=== PATIENT | female | born 1965 | race African-American/Black ===

== ENCOUNTER 2017-12-16 15:42 | Inpatient (IN) | payer MEDICAID ==
[~2017-12-16] VITALS: Ht 162.6 cm; Wt 88.5 kg
[2017-12-16] MEDS ORDERED: METHYLPREDNISOLONE SOD SUCC 125 MG/2 ML VIAL IV STA (15:59)
[2017-12-16] MEDS ORDERED: ALBUTEROL (0.083%) 2.5MG/3ML NEB HHN STA (15:59)
[2017-12-16] MEDS ORDERED: IPRATROPIUM BROMIDE (0.02%) 0.5MG/2.5ML NEB HHN STA (15:59)
[2017-12-16] MEDS ORDERED: MAGNESIUM 2 G PREMIX 50 ML IV STA (15:59)
[2017-12-16 16:33] LABS: BASOPHILS % 0.6 % (0.0-2.0); EOSINOPHILS % 0.8 % (0.0-5.0); HEMATOCRIT. 48.2 % (36.0-48.0); HEMOGLOBIN. 16.7 g/dL (12.0-16.0); LYMPHOCYTES % 12.1 % (20.0-50.0); MEAN CORPUSCULAR HEMOGLOBIN 34.1 pg (28.0-32.0); MEAN CORPUSCULAR VOLUME 98.7 fL (81.0-99.0); MEAN PLATELET VOLUME 9.4 fl (7.4-10.4); MONOCYTES % 10.3 % (2.0-8.0); NEUTROPHILS % 76.2 % (40.0-76.0); PLATELET 187 x1000/uL (130-400); RED BLOOD CELL COUNT 4.88 mill/uL (4.2-5.4); RED CELL DISTRIBUTION WIDTH 12.4 % (11.6-14.6)
[2017-12-16] MEDS ORDERED: SODIUM CHLORIDE 0.9% 1,000 ML IV ONE (16:35)
[2017-12-16 16:39] LABS: CHLORIDE 103 mEq/L (98-107)
[2017-12-16 16:40] LABS: INR 1.1
[2017-12-16] MEDS ORDERED: POTASSIUM CHLORIDE 20MEQ TABLET SR PO ONE (17:15)
[2017-12-17] VITALS (11 sets, daily range): BP systolic 102–157; BP diastolic 59–102
[2017-12-17] MEDS ORDERED: IPRATROPIUM/ALBUTEROL 0.5-3(2.5)MG/3ML NEB HHN PRN ×2 (05:30→12:15)
[2017-12-17] MEDS ORDERED: METHYLPREDNISOLONE SOD SUCC 125 MG/2 ML VIAL IV SCH (06:00)
[2017-12-17] MEDS: PANTOPRAZOLE 40MG DR TABLET PO SCH (06:11)
[2017-12-17] MEDS ORDERED: MAGNESIUM/ALUMINUM HYDROXIDE/SIMETHICONE 30ML UDC PO PRN (07:45)
[2017-12-17] MEDS ORDERED: DOCUSATE SODIUM 100MG CAPSULE PO PRN (07:45)
[2017-12-17] MEDS ORDERED: HYDROCODONE/ACETAMINOPHEN 10/325MG TABLET PO PRN (07:45)
[2017-12-17] MEDS ORDERED: DIPHENHYDRAMINE 50MG/ML VIAL IV PRN (07:45)
[2017-12-17] MEDS ORDERED: ONDANSETRON HCL 4MG/2ML VIAL IV PRN (07:45)
[2017-12-17] MEDS ORDERED: ACETAMINOPHEN 650MG SUPP PR PRN (07:45)
[2017-12-17] MEDS ORDERED: LORAZEPAM 0.5MG TABLET PO PRN (07:45)
[2017-12-17] MEDS ORDERED: GUAIFENESIN 200MG/10ML SUGAR FREE UDC PO PRN (07:45)
[2017-12-17] MEDS ORDERED: ACETAMINOPHEN 650MG/20.3ML UDC GT PRN (07:45)
[2017-12-17] MEDS ORDERED: CLONIDINE 0.1MG TABLET PO PRN (07:45)
[2017-12-17] MEDS ORDERED: NA PHOS,M-B/NA PHOS,DI-BA ENEMA 118ML PR PRN (07:45)
[2017-12-17] MEDS ORDERED: ACETAMINOPHEN 325MG TABLET PO PRN (07:45)
[2017-12-17] MEDS ORDERED: HYDROCODONE/ACETAMINOPHEN 5/325MG TABLET PO PRN (07:45)
[2017-12-17 08:24] LABS: BG BASE EXCESS -0.6 mmol/L (-2.0-2.0); BG BILEVEL POS AIRWAY PRESSURE 15/5; BG CARBOXYHEMOGLOBIN 0.5 % (0.5-1.5); BG DEOXYHEMOGLOBIN 1.7 % (0.0-5.0); BG HCO3 ACT 24.3 mmol/L (22.0-26.0); BG METHEMOGLOBIN 0.4 % (0.0-1.5); BG OXYGEN SATURATION 98.3 % (92.0-98.5); BG OXYHEMOGLOBIN 97.4 % (94.0-97.0); BG PCO2 40.9 mmHg (35.0-45.0); BG PH 7.391 (7.350-7.450); BG PO2 119.2 mmHg (75.0-100.0); BG SAMPLE SITE RIGHT RADIAL; BG TOTAL HEMOGLOBIN 16.3 g/dL (12.0-18.0); BG VENT MODE MASK - BIPAP; BG VENT RATE 16 set
[2017-12-17] MEDS: IPRATROPIUM BROMIDE (0.02%) 0.5MG/2.5ML NEB HHN SCH ×2 (09:03→11:47)
[2017-12-17] MEDS: ENOXAPARIN 40MG/0.4ML SYR SUBCUT SCH (09:32)
[2017-12-17] MEDS ORDERED: POTASSIUM CHLORIDE 20MEQ TABLET SR PO SCH (11:45)
[2017-12-17 12:02] LABS: CHLORIDE 109 mEq/L (98-107)
[2017-12-17 12:10] LABS: LDL CHOLESTEROL 57 mg/dL (5-100); TOTAL IRON BINDING CAPACITY 282 ug/dL (250-450)
[2017-12-17 12:12] LABS: HDL CHOLESTEROL 112 mg/dL (40-59)
[2017-12-17 12:13] LABS: T4 FREE 1.09 ng/dL (0.76-1.46)
[2017-12-17] MEDS ORDERED: GUAIFENESIN-DM 200MG-20MG/10ML UDC PO PRN (12:15)
[2017-12-17] MEDS: LORATADINE 10MG TABLET PO SCH (12:42)
[2017-12-17] MEDS: GABAPENTIN 100MG CAPSULE PO SCH ×2 (12:43→22:04)
[2017-12-17] MEDS ORDERED: DEXTROSE 50% WATER 50ML SYRINGE IV PRN (13:00)
[2017-12-17] MEDS: BLOOD SUGAR DIAGNOSTIC STRIP TEST SCH ×3 (13:00→21:01)
[2017-12-17] MEDS: INSULIN LISPRO 100 UNITS/ML SUBCUT SCH ×3 (13:00→21:00)
[2017-12-17 13:26] LABS: HEMATOCRIT. 43.1 % (36.0-48.0); HEMOGLOBIN. 14.6 g/dL (12.0-16.0); MEAN CORPUSCULAR HEMOGLOBIN 33.7 pg (28.0-32.0); MEAN CORPUSCULAR VOLUME 99.2 fL (81.0-99.0); MEAN PLATELET VOLUME 9.6 fl (7.4-10.4); PLATELET 207 x1000/uL (130-400); RED BLOOD CELL COUNT 4.34 mill/uL (4.2-5.4); RED CELL DISTRIBUTION WIDTH 12.5 % (11.6-14.6)
[2017-12-17 13:30] LABS: CHLORIDE 107 mEq/L (98-107)
[2017-12-17 13:38] LABS: AMMONIA 47 uMol/L (<32)
[2017-12-17] MEDS ORDERED: LIDOCAINE HCL/PF 1% 2ML VIAL ONE (13:38)
[2017-12-17 13:40] LABS: CREATINE KINASE 327 IU/L (26-192)
[2017-12-17] MEDS: METHYLPREDNISOLONE SOD SUCC 40 MG/ML VIAL IV SCH ×2 (13:41→22:04)
[2017-12-17 13:42] LABS: CREATINE KINASE MB FRACTION 5.6 ng/mL (0.5-3.6)
[2017-12-17 15:21] LABS: PLATELET ESTIMATE NORMAL
[2017-12-17 15:32] LABS: FOLIC ACID (FOLATE) SERUM 15.2 ng/mL (>5.38)
[2017-12-17 16:20] LABS: CLARITY URINE CLOUDY (CLEAR); COLOR URINE DARK YELLOW (YELLOW); KETONES URINE TRACE (NEGATIVE); LEUKOCYTE ESTERASE URINE NEGATIVE (NEGATIVE); NITRITE URINE NEGATIVE (NEGATIVE); OCCULT BLOOD URINE NEGATIVE (NEGATIVE); PH URINE 5.5 (4.5-8.0); PROTEIN URINE 1+ (NEGATIVE); SPECIFIC GRAVITY URINE 1.026 (1.005-1.030)
[2017-12-17 16:34] LABS: *AMPHETAMINES SCREEN URINE NEGATIVE (NEGATIVE); *BARBITURATES SCREEN URINE NEGATIVE (NEGATIVE); *BENZODIAZEPINES SCREEN URINE NEGATIVE (NEGATIVE); *COCAINE SCREEN URINE NEGATIVE (NEGATIVE); METHADONE URINE SCREEN NEGATIVE (NEGATIVE)
[2017-12-17 16:35] LABS: CANNABINOID URINE SCREEN PRESUMTIVE POSITIVE (NEGATIVE); OPIATES URINE SCREEN NEGATIVE (NEGATIVE); PHENCYCLIDINE URINE SCREEN NEGATIVE (NEGATIVE)
[2017-12-17] MEDS: IPRATROPIUM/ALBUTEROL 0.5-3(2.5)MG/3ML NEB HHN SCH ×2 (16:53→20:00)
[2017-12-17] MEDS: FAMOTIDINE 20MG/2ML VIAL IV SCH (17:28)
[2017-12-17 17:56] LABS: CHLORIDE 111 mEq/L (98-107)
[2017-12-17] MEDS: BUDESONIDE 0.5MG/2ML NEB HHN SCH (20:20)
[2017-12-17] MEDS: LACTULOSE 20G/30ML UDC PO SCH (21:01)
[2017-12-17] MEDS: GUAIFENESIN 600MG ER TABLET PO SCH (21:01)
[2017-12-18] VITALS (12 sets, daily range): BP systolic 93–146; BP diastolic 34–85
[2017-12-18] MEDS: BUDESONIDE 0.5MG/2ML NEB HHN SCH ×3 (00:33→21:26)
[2017-12-18] MEDS: IPRATROPIUM/ALBUTEROL 0.5-3(2.5)MG/3ML NEB HHN SCH ×6 (00:33→21:27)
[2017-12-18] MEDS: LACTULOSE 20G/30ML UDC PO SCH ×3 (05:56→21:18)
[2017-12-18] MEDS: FAMOTIDINE 20MG/2ML VIAL IV SCH ×2 (05:57→17:52)
[2017-12-18] MEDS: GABAPENTIN 100MG CAPSULE PO SCH ×3 (05:57→21:21)
[2017-12-18] MEDS: METHYLPREDNISOLONE SOD SUCC 40 MG/ML VIAL IV SCH ×3 (05:57→21:18)
[2017-12-18] MEDS: BLOOD SUGAR DIAGNOSTIC STRIP TEST SCH ×4 (06:22→21:21)
[2017-12-18] MEDS: INSULIN LISPRO 100 UNITS/ML SUBCUT SCH ×4 (06:22→21:00)
[2017-12-18 07:33] LABS: HEMATOCRIT. 42.4 % (36.0-48.0); HEMOGLOBIN. 14.1 g/dL (12.0-16.0); MEAN CORPUSCULAR HEMOGLOBIN 33.3 pg (28.0-32.0); MEAN CORPUSCULAR VOLUME 100.1 fL (81.0-99.0); MEAN PLATELET VOLUME 9.9 fl (7.4-10.4); PLATELET 205 x1000/uL (130-400); RED BLOOD CELL COUNT 4.24 mill/uL (4.2-5.4); RED CELL DISTRIBUTION WIDTH 12.6 % (11.6-14.6)
[2017-12-18 07:41] LABS: CHLORIDE 108 mEq/L (98-107)
[2017-12-18 07:51] LABS: PHOSPHORUS 3.7 mg/dL (2.5-4.9)
[2017-12-18] MEDS: ENOXAPARIN 40MG/0.4ML SYR SUBCUT SCH (08:26)
[2017-12-18] MEDS: PANTOPRAZOLE 40MG DR TABLET PO SCH (08:27)
[2017-12-18] MEDS: GUAIFENESIN 600MG ER TABLET PO SCH ×2 (08:27→21:21)
[2017-12-18] MEDS: LORATADINE 10MG TABLET PO SCH (08:27)
[2017-12-18] MEDS: MONTELUKAST SODIUM 10MG TABLET PO SCH (17:52)
[2017-12-18 20:43] LABS: CHLORIDE 106 mEq/L (98-107)
[2017-12-19] VITALS (12 sets, daily range): BP systolic 98–148; BP diastolic 51–84
[2017-12-19] MEDS: IPRATROPIUM/ALBUTEROL 0.5-3(2.5)MG/3ML NEB HHN SCH ×5 (01:16→20:06)
[2017-12-19] MEDS: GABAPENTIN 100MG CAPSULE PO SCH ×3 (05:57→20:43)
[2017-12-19] MEDS: METHYLPREDNISOLONE SOD SUCC 40 MG/ML VIAL IV SCH ×2 (05:57→17:15)
[2017-12-19] MEDS: LACTULOSE 20G/30ML UDC PO SCH ×3 (05:57→20:43)
[2017-12-19] MEDS: FAMOTIDINE 20MG/2ML VIAL IV SCH (05:58)
[2017-12-19 07:07] LABS: CHLORIDE 104 mEq/L (98-107)
[2017-12-19] MEDS: BLOOD SUGAR DIAGNOSTIC STRIP TEST SCH ×2 (07:25→11:45)
[2017-12-19 07:29] LABS: CREATINE KINASE 112 IU/L (26-192)
[2017-12-19 07:30] LABS: CREATINE KINASE MB FRACTION 2.2 ng/mL (0.5-3.6)
[2017-12-19] MEDS: INSULIN LISPRO 100 UNITS/ML SUBCUT SCH (07:54)
[2017-12-19] MEDS: GUAIFENESIN 600MG ER TABLET PO SCH ×2 (08:27→20:43)
[2017-12-19] MEDS: PANTOPRAZOLE 40MG DR TABLET PO SCH (08:27)
[2017-12-19] MEDS: LORATADINE 10MG TABLET PO SCH (08:27)
[2017-12-19] MEDS: ENOXAPARIN 40MG/0.4ML SYR SUBCUT SCH (08:27)
[2017-12-19] MEDS: BUDESONIDE 0.5MG/2ML NEB HHN SCH ×2 (12:25→20:07)
[2017-12-19 13:40] LABS: PLATELET ESTIMATE NORMAL
[2017-12-19 16:45] LABS: CHLORIDE 103 mEq/L (98-107)
[2017-12-19] MEDS: NICOTINE 21MG PATCH TD SCH (17:15)
[2017-12-19] MEDS: MONTELUKAST SODIUM 10MG TABLET PO SCH (17:15)
[2017-12-19] MEDS ORDERED: FAMOTIDINE 20MG TABLET PO SCH (21:00)
[2017-12-20] VITALS (9 sets, daily range): BP systolic 106–131; BP diastolic 61–82
[2017-12-20] MEDS: IPRATROPIUM/ALBUTEROL 0.5-3(2.5)MG/3ML NEB HHN SCH ×4 (00:31→12:05)
[2017-12-20] MEDS: LACTULOSE 20G/30ML UDC PO SCH ×2 (06:04→13:13)
[2017-12-20] MEDS: GABAPENTIN 100MG CAPSULE PO SCH ×2 (06:04→13:10)
[2017-12-20 07:25] LABS: CHLORIDE 103 mEq/L (98-107)
[2017-12-20 07:32] LABS: AMMONIA 29 uMol/L (<32)
[2017-12-20 07:33] LABS: BASOPHILS % 0.1 % (0.0-2.0); HEMATOCRIT. 44.5 % (36.0-48.0); HEMOGLOBIN. 14.8 g/dL (12.0-16.0); MEAN CORPUSCULAR HEMOGLOBIN 33.4 pg (28.0-32.0); MEAN CORPUSCULAR VOLUME 100.4 fL (81.0-99.0); MEAN PLATELET VOLUME 9.8 fl (7.4-10.4); MONOCYTES % 8.4 % (2.0-8.0); NEUTROPHILS % 82.5 % (40.0-76.0); PLATELET 211 x1000/uL (130-400); RED BLOOD CELL COUNT 4.43 mill/uL (4.2-5.4); RED CELL DISTRIBUTION WIDTH 12.6 % (11.6-14.6)
[2017-12-20] MEDS: BUDESONIDE 0.5MG/2ML NEB HHN SCH (07:56)
[2017-12-20] MEDS: METHYLPREDNISOLONE SOD SUCC 40 MG/ML VIAL IV SCH (09:19)
[2017-12-20] MEDS: ENOXAPARIN 40MG/0.4ML SYR SUBCUT SCH (09:20)
[2017-12-20] MEDS: LORATADINE 10MG TABLET PO SCH (09:20)
[2017-12-20] MEDS: GUAIFENESIN 600MG ER TABLET PO SCH (09:20)
[2017-12-20] MEDS: NICOTINE 21MG PATCH TD SCH (09:21)
[2017-12-20] MEDS ORDERED: TERBUTALINE SULFATE 1MG/ML VIAL SUBCUT NR (12:30)
[2017-12-20] MEDS ORDERED: BENZONATATE 100MG CAPSULE PO SCH (12:30)
== END 2017-12-20 15:35 | disposition home or self-care (01) | DRG 133 ==
LOC: ER 16:25 → 5EST 18:28 → EDBEDREQ 18:29 → EDBEDREQTM 18:29 → ENRESERV 21:41
PROVIDERS: ADMIT Internal Medicine; ATTEND Internal Medicine
PROC: 5A09457 Assistance with Respiratory Ventilation, 24-96 Consecutive Hours, Continuous Positive Airway Pressure (ICD-10-PCS; principal; 2017-12-16)
DX: J96.00 Acute respiratory failure, unspecified whether with hypoxia or hypercapnia (principal); R65.10 Systemic inflammatory response syndrome (SIRS) of non-infectious origin without acute organ dysfunction; E72.20 Disorder of urea cycle metabolism, unspecified; J45.901 Unspecified asthma with (acute) exacerbation; E87.5 Hyperkalemia; I10 Essential (primary) hypertension; J40 Bronchitis, not specified as acute or chronic; M06.9 Rheumatoid arthritis, unspecified; T38.0X5A Adverse effect of glucocorticoids and synthetic analogues, initial encounter; R73.9 Hyperglycemia, unspecified; D72.829 Elevated white blood cell count, unspecified; E87.6 Hypokalemia; Z87.891 Personal history of nicotine dependence; Z90.710 Acquired absence of both cervix and uterus
CPT/HCPCS: 36415; 36600; 71045; 80048; 80053; 80061; 80305; 81003; 82140; 82375; 82550; 82553; 82607; 82728; 82746; 82805; 82962; 83036; 83540; 83550; 83690; 83735; 83880; 84100; 84132; 84439; 84443; 84481; 84484; 85025; 85379; 85610; 87086; 93005; 93306; 93970; 94640; 94644; 94660; 99285; J1650; J2920; J2930; J3105; J3475; J3490; J7030; J7611; J7620; J7626

== ENCOUNTER 2018-10-08 13:45 | Inpatient (IN) | payer MEDICAID ==
[~2018-10-08] VITALS: Ht 162.6 cm; Wt 72.6 kg
[2018-10-08] MEDS ORDERED: singulair (14:36)
[2018-10-08] MEDS ORDERED: gabapentin (14:36)
[2018-10-08] MEDS ORDERED: TIOT18CA3 INH (14:36)
[2018-10-08] MEDS ORDERED: albuterol (14:36)
[2018-10-08] MEDS ORDERED: PREDNISONE 20MG TABLET PO STA (15:28)
[2018-10-08] MEDS ORDERED: IPRATROPIUM BROMIDE (0.02%) 0.5MG/2.5ML NEB HHN STA (15:28)
[2018-10-08] MEDS ORDERED: ALBUTEROL (0.083%) 2.5MG/3ML NEB HHN STA (15:28)
[2018-10-08] MEDS ORDERED: SODIUM CHLORIDE 0.9% 1,000 ML IV ONE (17:45)
[2018-10-08 18:06] LABS: BASOPHILS % 0.6 % (0.0-2.0); EOSINOPHILS % 1.8 % (0.0-5.0); HEMATOCRIT. 49.4 % (36.0-48.0); HEMOGLOBIN. 16.5 g/dL (12.0-16.0); LYMPHOCYTES % 38.6 % (20.0-50.0); MEAN CORPUSCULAR HEMOGLOBIN 33.7 pg (28.0-32.0); MEAN CORPUSCULAR VOLUME 101.1 fL (81.0-99.0); MEAN PLATELET VOLUME 9.9 fl (7.4-10.4); MONOCYTES % 8.7 % (2.0-8.0); NEUTROPHILS % 50.3 % (40.0-76.0); PLATELET 170 x1000/uL (130-400); RED BLOOD CELL COUNT 4.89 mill/uL (4.2-5.4); RED CELL DISTRIBUTION WIDTH 13.3 % (11.6-14.6)
[2018-10-08 18:15] LABS: CHLORIDE 109 mEq/L (98-107)
[2018-10-08 18:30] LABS: PLATELET ESTIMATE NORMAL
[2018-10-08] MEDS ORDERED: ACETAMINOPHEN 325MG TABLET PO PRN (23:30)
[2018-10-09] VITALS (7 sets, daily range): BP systolic 105–130; BP diastolic 57–85
[2018-10-09] MEDS ORDERED: NA PHOS,M-B/NA PHOS,DI-BA ENEMA 118ML PR PRN (00:45)
[2018-10-09] MEDS ORDERED: MAGNESIUM/ALUMINUM HYDROXIDE/SIMETHICONE 30ML UDC PO PRN (00:45)
[2018-10-09] MEDS ORDERED: GUAIFENESIN 200MG/10ML SUGAR FREE UDC PO PRN (00:45)
[2018-10-09] MEDS ORDERED: ACETAMINOPHEN 650MG/20.3ML UDC GT PRN (00:45)
[2018-10-09] MEDS ORDERED: ACETAMINOPHEN 325MG TABLET PO PRN (00:45)
[2018-10-09] MEDS ORDERED: DIPHENHYDRAMINE 50MG/ML VIAL IV PRN (00:45)
[2018-10-09] MEDS ORDERED: ONDANSETRON HCL 4MG/2ML INJ IV PRN (00:45)
[2018-10-09] MEDS ORDERED: DOCUSATE SODIUM 100MG CAPSULE PO PRN (00:45)
[2018-10-09] MEDS ORDERED: CLONIDINE 0.1MG TABLET PO PRN (00:45)
[2018-10-09] MEDS: SODIUM CHLORIDE 0.9% INJ 3ML FLUSH IVF SCH ×3 (06:31→21:18)
[2018-10-09] MEDS ORDERED: PNEUMOCOCCAL 23-VAL P-SAC VAC 0.5 ML IM ONE (09:00)
[2018-10-09] MEDS: ENOXAPARIN 40MG/0.4ML SYR SUBCUT SCH (09:35)
[2018-10-09 11:49] LABS: CREATINE KINASE 97 IU/L (26-192)
[2018-10-09 11:50] LABS: CREATINE KINASE MB FRACTION 1.1 ng/mL (0.5-3.6)
[2018-10-09] MEDS ORDERED: REGADENOSON 0.4 MG/5 ML IV SCH (13:30)
[2018-10-09 15:19] LABS: CLARITY URINE CLOUDY (CLEAR); COLOR URINE YELLOW (YELLOW); KETONES URINE NEGATIVE (NEGATIVE); LEUKOCYTE ESTERASE URINE 1+ (NEGATIVE); NITRITE URINE NEGATIVE (NEGATIVE); OCCULT BLOOD URINE NEGATIVE (NEGATIVE); PH URINE 6.5 (4.5-8.0); PROTEIN URINE NEGATIVE (NEGATIVE); SPECIFIC GRAVITY URINE 1.022 (1.005-1.030); UROBILINOGEN URINE 0.2 E.U./dL (0.2-1.0)
[2018-10-09 15:43] LABS: *AMPHETAMINES SCREEN URINE NEGATIVE (NEGATIVE); *BARBITURATES SCREEN URINE NEGATIVE (NEGATIVE); *BENZODIAZEPINES SCREEN URINE NEGATIVE (NEGATIVE); CANNABINOID URINE SCREEN PRESUMTIVE POSITIVE (NEGATIVE); METHADONE URINE SCREEN NEGATIVE (NEGATIVE); OPIATES URINE SCREEN NEGATIVE (NEGATIVE); PHENCYCLIDINE URINE SCREEN NEGATIVE (NEGATIVE)
[2018-10-09 15:45] LABS: *COCAINE SCREEN URINE PRESUMTIVE POSITIVE (NEGATIVE)
[2018-10-09] MEDS: AZITHROMYCIN 500 MG TABLET PO SCH (16:11)
[2018-10-09 16:27] LABS: T4 FREE 1.05 ng/dL (0.76-1.46)
[2018-10-09 16:37] LABS: CREATINE KINASE 83 IU/L (26-192)
[2018-10-09 16:39] LABS: CREATINE KINASE MB FRACTION < 1.0 ng/mL (0.5-3.6)
[2018-10-09] MEDS ORDERED: AZITHROMYCIN 500 MG TABLET PO SCH (18:45)
[2018-10-09] MEDS: HYDROCODONE/ACETAMINOPHEN 5/325MG TABLET PO PRN (20:30)
[2018-10-09 22:07] LABS: BASOPHILS % 0.3 % (0.0-2.0); EOSINOPHILS % 0.6 % (0.0-5.0); HEMATOCRIT. 41.3 % (36.0-48.0); HEMOGLOBIN. 13.6 g/dL (12.0-16.0); LYMPHOCYTES % 28.4 % (20.0-50.0); MEAN CORPUSCULAR HEMOGLOBIN 33.1 pg (28.0-32.0); MEAN CORPUSCULAR VOLUME 100.2 fL (81.0-99.0); MEAN PLATELET VOLUME 9.5 fl (7.4-10.4); MONOCYTES % 7.1 % (2.0-8.0); NEUTROPHILS % 63.6 % (40.0-76.0); PLATELET 177 x1000/uL (130-400); RED BLOOD CELL COUNT 4.12 mill/uL (4.2-5.4); RED CELL DISTRIBUTION WIDTH 12.8 % (11.6-14.6)
[2018-10-09] MEDS: IPRATROPIUM/ALBUTEROL 0.5-3(2.5)MG/3ML NEB INH PRN (22:09)
[2018-10-09 22:11] LABS: CHLORIDE 110 mEq/L (98-107)
[2018-10-10 04:00] VITALS: BP 103/46
[2018-10-10 07:42] LABS: BASOPHILS % 0.8 % (0.0-2.0); EOSINOPHILS % 1.2 % (0.0-5.0); HEMATOCRIT. 43.3 % (36.0-48.0); HEMOGLOBIN. 14.3 g/dL (12.0-16.0); LYMPHOCYTES % 40.5 % (20.0-50.0); MEAN CORPUSCULAR HEMOGLOBIN 33.7 pg (28.0-32.0); MEAN CORPUSCULAR VOLUME 101.7 fL (81.0-99.0); MONOCYTES % 5.2 % (2.0-8.0); NEUTROPHILS % 52.3 % (40.0-76.0); RED BLOOD CELL COUNT 4.25 mill/uL (4.2-5.4); RED CELL DISTRIBUTION WIDTH 13.3 % (11.6-14.6)
[2018-10-10 07:52] LABS: CHLORIDE 111 mEq/L (98-107)
[2018-10-10 08:00] VITALS: BP 95/44
[2018-10-10 08:11] LABS: LDL CHOLESTEROL 56 mg/dL (5-100)
[2018-10-10 08:12] LABS: HDL CHOLESTEROL 54 mg/dL (40-59)
[2018-10-10] MEDS: ENOXAPARIN 40MG/0.4ML SYR SUBCUT SCH (08:50)
[2018-10-10] MEDS: ASPIRIN 81MG TABLET PO SCH (08:50)
[2018-10-10] MEDS: AZITHROMYCIN 500 MG TABLET PO SCH (08:50)
[2018-10-10] MEDS: IPRATROPIUM/ALBUTEROL 0.5-3(2.5)MG/3ML NEB INH PRN (10:08)
[2018-10-10 12:00] VITALS: BP 108/55
[2018-10-10 12:07] LABS: PLATELET 149 x1000/uL (130-400)
[2018-10-10] MEDS: METHYLPREDNISOLONE SOD SUCC 40 MG/ML VIAL IV SCH (14:08)
[2018-10-10] MEDS: SODIUM CHLORIDE 0.9% INJ 3ML FLUSH IVF SCH ×2 (14:08→21:14)
[2018-10-10 16:00] VITALS: BP 111/65
[2018-10-10 20:00] VITALS: BP 145/64
[2018-10-10 20:45] VITALS: BP 145/64
[2018-10-10] MEDS: HYDROCODONE/ACETAMINOPHEN 5/325MG TABLET PO PRN (21:11)
[2018-10-11] VITALS: BP 109/49
[2018-10-11 04:00] VITALS: BP 124/60
[2018-10-11 06:00] VITALS: BP 105/65
[2018-10-11 08:00] VITALS: BP 138/76
[2018-10-11] MEDS: METHYLPREDNISOLONE SOD SUCC 40 MG/ML VIAL IV SCH (08:24)
[2018-10-11] MEDS: ENOXAPARIN 40MG/0.4ML SYR SUBCUT SCH (08:25)
[2018-10-11] MEDS: ASPIRIN 81MG TABLET PO SCH (08:37)
[2018-10-11] MEDS: AZITHROMYCIN 500 MG TABLET PO SCH (08:37)
[2018-10-11] MEDS ORDERED: REGADENOSON 0.4 MG/5 ML IV ONE (09:49)
[2018-10-11 12:00] VITALS: BP 116/62
[2018-10-11] MEDS ORDERED: AZIT500T2 MT (12:47)
[2018-10-11] MEDS: HYDROCODONE/ACETAMINOPHEN 5/325MG TABLET PO PRN (13:09)
[2018-10-11] MEDS: SODIUM CHLORIDE 0.9% INJ 3ML FLUSH IVF SCH ×2 (14:00→21:58)
[2018-10-11 16:00] VITALS: BP 121/62
[2018-10-11 16:46] LABS: HEMATOCRIT. 45.3 % (36.0-48.0); HEMOGLOBIN. 15.1 g/dL (12.0-16.0); MEAN CORPUSCULAR HEMOGLOBIN 33.4 pg (28.0-32.0); MEAN CORPUSCULAR VOLUME 99.9 fL (81.0-99.0); MEAN PLATELET VOLUME 9.6 fl (7.4-10.4); PLATELET 206 x1000/uL (130-400); RED BLOOD CELL COUNT 4.53 mill/uL (4.2-5.4); RED CELL DISTRIBUTION WIDTH 12.7 % (11.6-14.6)
[2018-10-11 17:11] LABS: PLATELET ESTIMATE NORMAL
[2018-10-11 17:13] LABS: CHLORIDE 105 mEq/L (98-107)
[2018-10-11] MEDS ORDERED: PROMETHAZINE HCL 25MG TABLET PO PRN (23:00)
[2018-10-12] MEDS: SODIUM CHLORIDE 0.9% INJ 3ML FLUSH IVF SCH (06:05)
[2018-10-12 08:00] VITALS: BP 114/72
[2018-10-12] MEDS: ASPIRIN 81MG TABLET PO SCH (09:27)
[2018-10-12] MEDS: ENOXAPARIN 40MG/0.4ML SYR SUBCUT SCH (09:27)
[2018-10-12] MEDS: AZITHROMYCIN 500 MG TABLET PO SCH (09:28)
[2018-10-12] MEDS: METHYLPREDNISOLONE SOD SUCC 40 MG/ML VIAL IV SCH (09:28)
[2018-10-12 12:00] VITALS: BP 112/64
[2018-10-12 14:34] VITALS: BP 112/64
== END 2018-10-12 15:30 | disposition home or self-care (01) | DRG 140 ==
LOC: ER 14:17 → 7WST 18:04 → 8WST 18:04 → UNDOADMIN 18:04 → EDBEDREQ 18:05 → ENRESERV 23:36 → CANRESERV 23:48
PROVIDERS: ADMIT Family Medicine; ATTEND Family Medicine
DX: J44.1 Chronic obstructive pulmonary disease with (acute) exacerbation (principal); E44.0 Moderate protein-calorie malnutrition; E78.5 Hyperlipidemia, unspecified; I10 Essential (primary) hypertension; J40 Bronchitis, not specified as acute or chronic; Z87.891 Personal history of nicotine dependence; Z90.710 Acquired absence of both cervix and uterus; Z79.899 Other long term (current) drug therapy
CPT/HCPCS: 36415; 71045; 78452; 80061; 80305; 82550; 82553; 83036; 83880; 84439; 84443; 84484; 85379; 90732; 93005; 93017; 93306; 94640; 99285; A9500; C1893; J1650; J2785; J2920; J7030; J7512; J7611; J7620

== ENCOUNTER 2019-10-17 16:06 | Emergency (ER) | payer MEDICAID ==
[~2019-10-17] VITALS: Ht 167.6 cm; Wt 90.0 kg
[~2019-10-17 16:06] MED LIST: AZIT500T2 MT; TIOT18CA3 INH; albuterol; gabapentin; singulair
[2019-10-17] MEDS ORDERED: ACETAMINOPHEN 325MG TABLET PO STA (16:58)
[2019-10-17] MEDS ORDERED: LEVOFLOXACIN 500MG PREMIX 100 ML IV ONE (17:00)
[2019-10-17] MEDS ORDERED: SODIUM CHLORIDE 0.9% 1000ML BAG (SEPSIS BOLUS) IV ONE (17:00)
[2019-10-17] MEDS ORDERED: IPRATROPIUM BROMIDE (0.02%) 0.5MG/2.5ML NEB HHN STA (17:14)
[2019-10-17] MEDS ORDERED: METHYLPREDNISOLONE SOD SUCC 125 MG/2 ML VIAL IV STA (17:14)
[2019-10-17] MEDS ORDERED: ALBUTEROL (0.083%) 2.5MG/3ML NEB HHN STA (17:14)
[2019-10-17] MEDS ORDERED: MAGNESIUM 2 G PREMIX 50 ML IV STA (17:14)
[2019-10-17 17:27] LABS: HEMATOCRIT. 43.9 % (36.0-48.0); HEMOGLOBIN. 15.5 g/dL (12.0-16.0); MEAN CORPUSCULAR VOLUME 99.5 fL (81.0-99.0); MEAN PLATELET VOLUME 9.3 fl (7.4-10.4); PLATELET 132 x1000/uL (130-400); RED BLOOD CELL COUNT 4.42 mill/uL (4.2-5.4); RED CELL DISTRIBUTION WIDTH 12.4 % (11.6-14.6)
[2019-10-17 17:33] LABS: PROTHROMBIN TIME 11.3 sec (9.6-11.0)
[2019-10-17 17:34] LABS: CHLORIDE 108 mEq/L (98-107)
[2019-10-17 17:52] LABS: PLATELET ESTIMATE NORMAL
[2019-10-17 18:16] LABS: CREATINE KINASE MB FRACTION < 1.0 ng/mL (0.5-3.6)
[2019-10-17 18:23] LABS: CREATINE KINASE 147 IU/L (26-192)
[2019-10-17] MEDS ORDERED: OSELTAMIVIR 75MG CAPSULE PO ONE (18:30)
[2019-10-17 20:13] LABS: CLARITY URINE CLOUDY (CLEAR); COLOR URINE YELLOW (YELLOW); KETONES URINE 1+ (NEGATIVE); LEUKOCYTE ESTERASE URINE NEGATIVE (NEGATIVE); NITRITE URINE NEGATIVE (NEGATIVE); OCCULT BLOOD URINE NEGATIVE (NEGATIVE); PROTEIN URINE 1+ (NEGATIVE); SPECIFIC GRAVITY URINE 1.025 (1.005-1.030)
[2019-10-17 23:15] VITALS: BP 135/82
== END 2019-10-17 23:34 | disposition home or self-care (01) ==
LOC: ER 16:06 → CANBEDREQ 10-18 02:45
DX: J44.1 Chronic obstructive pulmonary disease with (acute) exacerbation (principal); J11.1 Influenza due to unidentified influenza virus with other respiratory manifestations; I10 Essential (primary) hypertension
CPT/HCPCS: 36415; 71045; 80053; 81003; 82550; 82553; 83605; 83690; 83880; 84145; 84484; 85025; 85610; 87040; 87086; 87804; 93005; 94640; 96365; 96366; 96375; 99285; J1956; J2930; J3475; J7030; Z7610